=== PATIENT | male | born 1985 | race Caucasian/White ===

== ENCOUNTER 2019-10-11 23:13 | Inpatient (IN) | payer SELFPAY ==
[2019-10-11 23:15] VITALS: BP 121/83; PULSE 75; RESP 18; TEMP 37.1; O2SAT 95; BMI 20.7
--- NOTE | 2019-10-11 23:16 | ED_ITS ---
Entered by Julia Kidd, acting as scribe for Miller Ashraf MD HPI - Psych General: Chief Complaint: Psychiatric Symptoms Stated Complaint: MHE Time Seen by Provider: 10/11/19 23:17 Source: patient and EMS Mode of arrival: EMS Limitations: no limitations History of Present Illness: HPI Narrative: 34-year-old male presents to the ED with complaint of homicidal ideations. Pt states he feels the urge to harm old friends . Pt denies suicidal ideations. He has been on the same dose/medication for the past year and he is needing them re-evaluated. Pt admits to smoking marijumago. complaint: other (HI) Onset (ago): hour(s) Duration: constant History of same: Yes Relieving factors: none Context: recent drug abuse (marijuanna ) Associated psychiatric symptoms: depression and homicidal ideation Associated symptoms: Reports homicidal ideation Treatments prior to arrival: none Review of Systems Const: Denies: fever or chills Eyes: Denies: change in vision ENMT: Denies: throat pain or mouth pain Card: Denies: chest pain Resp: Denies: shortness of breath GI: Denies: abdominal pain, nausea, vomiting or diarrhea Musc: Denies: back pain or joint pain Skin/Breast: Denies: rash Neuro: Denies: headache or behavioral changes Psych: Reports: homicidal ideation Endo: Denies: excessive urination Dat/Lymph: Denies: easy bruising All/Imm: Denies: hives PFSH ED PFSH: Statuses (acute, chronic, etc) shown below reflect problem list status as previously entered and may not be historically accurate Social History Smoking and tobacco status: current every day smoker Physical Exam Const: COMMON NORMALS: no apparent distress, oriented x3 and healthy appearing HENMT: COMMON NORMALS: normocephalic and external nose normal HEAD & SCALP: normocephalic NOSE: external nose normal Eye: COMMON NORMALS: PERRL PUPIL: Yes PERRL Neck/C-Spine: COMMON NORMALS: full ROM and no lymphadenopathy Chest: COMMONS NORMALS: inspection of chest normal Resp: COMMON NORMALS: normal respiratory effort, no use of accessory muscles and clear to auscultation bilaterally AUSCULTATION: clear to auscultation bilaterally Cardio: COMMON NORMALS: regular rate and regular rhythm RATE: regular rate RHYTHM: regular rhythm GI: COMMON NORMALS: normal to inspection, nondistended, normoactive bowel sounds, soft to palpation, non-tender and no masses PALPATION: Yes soft Back/Pelvis: THORACIC SPINE/UPPER BACK: Yes normal to inspection Extremity: COMMON NORMALS: normal to inspection, full ROM and normal capillary refill Neuro: COMMON NORMALS: oriented x3 Psych: COMMON NORMALS: mental status grossly normal and cooperative APPEA ERIC: Yes unkempt SPEECH: Yes soft THOUGHT CONTENT: Yes homicidality Skin: COMMON NORMALS: no rashes or lesions noted GENERAL SKIN EXAM: no rashes or lesions noted MDM - Psych MDM Narrative: Medical decision making narrative: Patient presents here with homicidal ideations and is requesting admission to the psychiatric unit. Patient is voluntary and is been agreeable here. I spoke to Dr. Garcia and will admit to the psychiatric unit. Lab Data: Labs: Lab Results 10/11/19 10/11/19 10/11/19 Range/Units 23:41 23:44 23:44 WBC 10.1 H (4.0-10.0) 10^3/ uL RBC 4.79 (4.1-5.3) 10^6/u L Hgb 14.0 (11.7-16.6) g/dL Hct 42.5 (42.0-52.0) % MCV 88.7 (80-94) fL MCH 29.2 (28.0-34.0) pg MCHC 32.9 (30.0-36.0) g/dL RDW 13.1 (12.1-15.1) % Plt Count 248 (130-400) 10^3/c mm MPV 9.8 (7.4-10.4) fL Neut % (Auto) 62.4 % Lymph % (Auto) 27.3 % [place] Zandt % (Auto) 7.7 % Eos % (Auto) 1.8 % Baso % (Auto) 0.6 % Neut # (Auto) 6.3 (1.8-7.7) 10^3/u L Lymph # (Auto) 2.8 (0.8-4.8) 10^3/u L [place]t # (Auto) 0.8 (0.2-0.9) 10^3/u L Eos # (Auto) 0.2 (0.0-0.8) 10^3/u L Baso # (Auto) 0.1 (0.0-0.1) 10^3/u L Nucleated RBC % (a uto) 0 % Nucleated RBCs # 0.0 /100WBC Sodium 138 (136-145) mmol/L Potassium 4.3 (3.5-5.1) mmol/L Chloride 101 (98-107) mmol/L Carbon Dioxide 26 (22-29) mmol/L Anion Gap 15.3 (5-19) BUN 10 (6-20) mg/dL Creatinine 0.7 (0.7-1.2) mg/dL GFR Calculation 129.9 (90-130) mL/min Glucose 117 H (74-109) mg/dL Calcium 9.9 (8.6-10.0) mg/Dl Total Bilirubin 0.2 (0.15-1.2) mg/dL AST 15 (0-40) U/L ALT 18 (0-41) U/L Alkaline Phosphata se 80 (40-130) IU/L Total Protein 7.6 (6.6-8.7) g/dL Albumin 5.0 (3.5-5.2) g/dL Globulin 2.6 (1.3-4.6) g/dL Salicylates < 0.3 L (3-10) mg/dL Urine Opiates Scre en Negative (Negative) ng/mL Acetaminophen < 5.0 L (10-30) ug/mL Ur Barbiturates Sc reen Negative (Negative) ng/mL Ur Phencyclidine S crn Negative (Negative) ng/mL Ur Amphetamines Sc reen Negative (Negative) ng/mL U Benzodiazepines Scrn Negative (Negative) ng/mL Urine Cocaine Scre en Negative (Negative) ng/mL U Marijuana (THC) Screen Positive H (Negative) ng/mL Ethyl Alcohol < 10 (0-10) mg/dL Discharge Plan Discharge Patient Disposition: Admitted As Inpatient Clinical Impression: Homicidal ideation Condition: Stable Referrals: Shima Bradshaw FNP-C [Primary Care Provider] - Coding Level of Care Code ED Outside [employer] Sales Representatives for Chg Fwd The documentation recorded by the Bernabe chapa Ashley, accurately reflects the service I personally performed and the decisions made by Pascale hampton Korby, MD Oct 11, 2019 23:13
[2019-10-11 23:50] LABS: Basophils # 0.1 10^3/uL (0.0-0.1); Basophils % 0.6 %; Eosinophils # 0.2 10^3/uL (0.0-0.8); Eosinophils % 1.8 %; Hematocrit 42.5 % (42.0-52.0); Lymphocytes # 2.8 10^3/uL (0.8-4.8); Lymphocytes % 27.3 %; Mean Corpuscular HGB Conc 32.9 g/dL (30.0-36.0); Mean Corpuscular Hemoglobin 29.2 pg (28.0-34.0); Mean Corpuscular Volume 88.7 fL (80-94); Mean Platelet Volume 9.8 fL (7.4-10.4); Monocytes # 0.8 10^3/uL (0.2-0.9); Monocytes % 7.7 %; Neutrophils # 6.3 10^3/uL (1.8-7.7); Neutrophils % 62.4 %; Nucleated Red Blood Cells % 0 %; Platelet Count 248 10^3/cmm (130-400); Red Blood Count 4.79 10^6/uL (4.1-5.3); Red Cell Distribution Width 13.1 % (12.1-15.1); White Blood Count 10.1 10^3/uL (4.0-10.0)
[2019-10-12 00:17] LABS: Amphetamines Screen Urine Negative (Negative); Barbiturates Screen Urine Negative (Negative); Benzodiazepines Screen Urine Negative (Negative); Cocaine Screen Urine Negative (Negative); Opiate Screen Urine Negative (Negative); PCP Screen Urine Negative (Negative); THC Screen Urine Positive (Negative)
[2019-10-12 00:18] LABS: Alanine Aminotransferase 18 U/L (0-41); Alkaline Phosphatase 80 IU/L (40-130); Anion Gap 15.3 (5-19); Aspartate Amino Transferase 15 U/L (0-40); Blood Urea Nitrogen 10 mg/dL (6-20); Calcium 9.9 mg/Dl (8.6-10.0); Carbon Dioxide 26 mmol/L (22-29); Chloride 101 mmol/L (98-107); Globulin 2.6 g/dL (1.3-4.6); Glomerular Filtration Rate 129.9 mL/min (90-130); Glucose 117 mg/dL (74-109); Potassium 4.3 mmol/L (3.5-5.1); Sodium 138 mmol/L (136-145); Total Bilirubin 0.2 mg/dL (0.15-1.2); Total Protein 7.6 g/dL (6.6-8.7)
[2019-10-12 00:43] LABS: Acetaminophen < 5.0 ug/mL (10-30); Alcohol Level < 10 mg/dL (0-10); Salicylate < 0.3 mg/dL (3-10)
[2019-10-12 01:21] VITALS: BP 91/55; PULSE 58; RESP 18; O2SAT 99
[2019-10-12 01:25] VITALS: BP 120/79; PULSE 64; RESP 18; TEMP 36.6; O2SAT 100
[2019-10-12 06:00] VITALS: BP 100/56; PULSE 62; RESP 18; TEMP 36.6; O2SAT 97
[2019-10-12] MEDS: nicotine 2 mg Gum BUCCAL ×3 (08:24→18:18)
[2019-10-12] MEDS: hyDROXYzine 25 mg Capsule 50 MG PO (11:50)
--- NOTE | 2019-10-12 11:51 | PC.NURSE ---
PT NOTE: PRN VISTARIL 50 MG GIVEN FOR ANXIETY.
[2019-10-12 14:00] VITALS: BP 113/70; PULSE 82; RESP 17; TEMP 36.8; O2SAT 97
[2019-10-12 17:05] LABS: Glucose Point of Care 155 mg/dL (70-110)
--- NOTE | 2019-10-12 19:31 | PM.NHP ---
Providers/Chief Complaint Admitting Physician: Claus Garcia MD Primary Care Provider: Shima Bradshaw Chief Complaint: MHE HPI NPU History of Present Illness Jessica Louis is a 34 year old male who presents reporting that he has been struggling recently overall. He endorses having had increase in depression and anxiety and feeling like his medications to treat said issues were not effective. He endorses having multiple hospitalizations last one being here almost 2 years ago. He endorses sometimes being nonadherent to treatment with gets him in trouble. He denies significant addiction issues but does report fairly regular marijuana use. Reports that he started having thoughts to kill himself. Endorses low mood, poor sleep, feelings of hopelessness, helplessness and worthlessness and sewing to think about killing himself as well as killing others from past slights those individuals have had against him. Psychiatric history: As above and please see last evaluation for medication trials etc. Substance abuse history: Endorses smoking cigarettes, having alcohol rarely, smoking marijuana with some regularity. He denies current issues with cocaine, methamphetamine, opiates or any other illicit drugs. Per his last [facility] eval: History of Present Illness Date of Service: Nov 24, 2017 Chief Complaint: Depression, suicidal ideation, homicidal ideation HPI: Mr. Louis is a 32-year-old male who is known to our behavioral health services who presented to [facility] ED with complaint of worsening suicidal ideation and homicidal ideation. He's been off of his medication regimen for the past 2 weeks and reports progressively worsening depression symptoms that he now characterizes as severe. He admits to some social isolation, depressed mood, low energy, low motivation, and associated auditory hallucinations. Patient was last seen at [facility] approximately 1 month ago. He denies any alcohol or any substance use. Allergies: Coded Allergies: CORTICOSTEROIDS (GLUCOCORTICOIDS) (Verified Allergy, Mild, 11/23/17) DIVALPROEX SODIUM (Unverified Allergy, Unknown, 11/23/17) Active Meds: Current Hospital Medications: Medications (Trade) Dose Ordered Sig/Shanika Route PRN Reason Start Time Stop Time Status Last Admin Dose Admin Lorazepam (Ativan Tab) 0.5 mg Q4H PRN PO FOR MILD ANXIETY 11/23/17 18:00 Lorazepam (Ativan Tab) 1 mg Q4H PRN PO FOR MODERATE ANXIETY 11/23/17 18:00 Lorazepam (Ativan Tab) 2 mg Q4H PRN PO FOR SEVERE ANXIETY 11/23/17 18:00 Lorazepam (Ativan Inj) 2 mg Q4H PRN IM For Severe Aggression 11/23/17 18:00 Haloperidol Lactate (Haldol Inj) 5 mg Q4H PRN IM Severe Aggression 11/23/17 18:00 Diphenhydramine HCl (Benadryl Inj) 50 mg ONCE PRN IV Severe Extrapyramidal Symptoms 11/23/17 18:00 Benztropine Mesylate (Cogentin Tab) 1 mg BID PRN PO Mild Extrapyramidal symptoms 11/23/17 18:00 Benztropine Mesylate (Cogentin Inj) 1 mg ONCE PRN IM Severe Extrapyramidal Symptom 11/23/17 18:00 Acetaminophen (Tylenol Tab) 650 mg Q4H PRN PO FOR MILD PAIN 11/23/17 18:00 11/23/17 22:34 Trazodone HCl (Trazodone) 50 mg BEDTIME PRN PO FOR SLEEP 11/23/17 18:00 Nicotine (Nicoderm Patch) 21 mg DAILY PRN TD FOR WITHDRAWAL 11/23/17 18:00 Nicotine Polacrilex (Nicotine Gum) 2 mg Q2H PRN PO Withdrawal 11/23/17 18:00 11/24/17 09:14 Haloperidol (Haldol Tab) 5 mg Q4H PRN PO For agitation 11/23/17 18:00 Lorazepam (Ativan Tab) 2 mg Q4H PRN PO FOR AGITATION 11/23/17 18:00 Olanzapine (Zyprexa Zydis) 5 mg BID PO 11/23/17 22:00 11/24/17 09:13 Influenza Virus Vaccine Quadrival (Flucelvax Quad 9811-0915 Syr) 60 mcg ONCE ONCE IM 11/24/17 18:00 11/24/17 18:01 Pneumococcal Polyvalent Vaccine (Pneumovax Vaccine) 0.5 ml ONCE ONCE IM 11/24/17 18:00 11/24/17 18:01 Past Medical History Past Medical History: PAST PSYCHIATRIC HISTORY: -Review of records indicates that he has been receiving care in on the [facility] system at least since 2013 -Consistent diagnoses include bipolar disorder with psychosis, homicidal ideation, willem, PTSD -Most recently his medication regimen has included Abilify, lithium, Ambien, and he states this combination has not been very helpful -He's had previous trials of Depakote which he has allergy, Lamictal, Trileptal, Haldol; this appears that lithium is most consistent medication he's been on over the years PAST FAMILY PSYCHIATRIC HISTORY: -He has 2 siblings with bipolar disorder SOCIAL HISTORY: -Recently had his disability hearing PAST MEDICAL HISTORY: -Type II diabetes mellitus Meds NPU Home Medications Medication Instructions Recorded Confirmed Type divalproex 500 mg PO BID 10/11/19 10/11/19 History fluoxetine [Prozac] 20 mg PO DAILY 10/11/19 10/11/19 History naproxen 500 mg PO BID PRN 10/11/19 10/11/19 History buspirone 7.5 mg PO BID 10/12/19 10/12/19 History Allergies Allergy/AdvReac Type Severity Reaction Status Date / Time Androgenic Anabolic Steroid Allergy ADR-Halluci Verified 10/12/19 03:20 [facility] NPU PFS: Statuses (acute, chronic, etc) shown below reflect problem list status as previously entered and may not be historically accurate Social History Smoking and tobacco status: current every day smoker Mental Status Exam MSE Comments: This is a slender white male with just mainly noncontact. No abnormal movements except for psychomotor retardation. Cooperative with exam in no acute distress. Speech was decreased rate and volume. Mood described as depressed, affect. Thought process organized. Thought content: Patient denies any suicidal ideation currently endorsed ongoing homicidal ideation but denies it as directed in someone in particular, there are no delusions reported noted, he denies any auditory or visual hallucinations. Attention and concentration were intact and memory appeared reliable but none were formally tested. He is alert and oriented ?3. Insight and judgment are limited. Vitals/I&O/Wt Last Vital Signs Temp 98.3 F 10/12/19 14:00 Pulse 82 10/12/19 14:00 Resp 17 10/12/19 14:00 BP 113/70 10/12/19 14:00 Pulse Ox 97 10/12/19 14:00 Weight last 48 hrs Weight 73.482 kg A&P Assessment and plan (1) Bipolar 1 disorder, depressed: This is a 34-year-old white male with a long history of mental health and addiction issues who presents having struggles with his depression currently on medication that is of limited efficacy at this point. 1. Continue current medication. Except: 2. Increase Prozac to 40 mg by mouth every morning and BuSpar 15 mg by mouth twice a day 3. Encourage individual, group and milieu therapy. 4. Continue every 15 minute checks for safety. 5. Get collateral information from outside treatment seen and significant others. Status: Acute Code(s): F31.9 - Bipolar disorder, unspecified Involuntary Hold Information 96 Hour Hold: 96 Hour Involuntary Admission: No Attestations NPU Medical Necessity Statement*: Inpatient hospitalization is medically necessary and the clinically appropriate intervention at this time. He will be in the hospital for over 2 midnights. We will titrate medication to effect and monitor. Likely length of stay 2-4 days. Coding Level of Care Code Acute Numerical Control Tool Programmer for Keyana Zimmerman Diagnoses Bipolar 1 disorder, depressed F31.9
[2019-10-12 19:56] VITALS: BP 117/67; PULSE 65; RESP 17; TEMP 36.7; O2SAT 98
[2019-10-12] MEDS: fluoxetine 20 mg Capsule PO (21:06)
[2019-10-13 06:00] VITALS: BP 123/59; PULSE 59; RESP 16; TEMP 37.2; O2SAT 96
[2019-10-13 06:41] LABS: Glucose Point of Care 134 mg/dL (70-110)
[2019-10-13] MEDS: fluoxetine 20 mg Capsule PO ×2 (09:01→10:15)
--- NOTE | 2019-10-13 09:52 | P.PN_ITS ---
Subjective NPU Subjective: Interval history: Scottie presents today reporting that the increase in the BuSpar and Prozac filling there being helpful. He reports that he is trying to make some decisions about his life and how he is going to manage anxiety overall. 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 He reports feeling like if he has these medication adjustments in place and follows up with outpatient services that everything will work out. He reports that he is sleeping less which is good and we started discussing discharge. Mental Status Exam MSE Comments: This is a slender white male with adequate dress, grooming and improved eye contact. No abnormal movements except for psychomotor retardation which is improving. Cooperative with exam in no acute distress. Speech was decreased rate and volume. Mood described as a little better, affect congruent. Thought process organized. Thought content: Patient denies any suicidal ideation and currently reports that the homicidal ideation is diminishing , there are no delusions reported or noted, he denies any auditory or visual hallucinations. Attention and concentration were intact and memory appeared reliable but none were formally tested. He is alert and oriented ?3. Insight and judgment are limited but improving. Vitals/I&O/Wt Last Vital Signs Temp 99.0 F 10/13/19 06:00 Pulse 59 L 10/13/19 06:00 Resp 16 10/13/19 06:00 BP 123/59 10/13/19 06:00 Pulse Ox 96 10/13/19 06:00 Weight last 48 hrs Weight 73.482 kg A&P Additional A&P Information Additional A&P Information: This is a 34-year-old white male with a long history of mental health and addiction issues who presents having struggles with his depression currently on medication that is of limited efficacy at this point. 1. Continue current medication. Ey 2. Encourage individual, group and milieu therapy. 3. Continue every 15 minute checks for safety. 4. Get collateral information from outside treatment team and significant others. Involuntary Hold Information 96 Hour Hold: 96 Hour Involuntary Admission: No Attestations NPU Medical Necessity Statement*: Inpatient hospitalization is medically necessary and the clinically appropriate intervention at this time. We will titrate medication to effect and monitor. Likely length of stay 2-3 days. Coding Level of Care Code Acute Signal Apprentice for Keyana Zimmerman
[2019-10-13] MEDS: nicotine 2 mg Gum BUCCAL ×4 (11:28→20:23)
[2019-10-13 13:54] VITALS: BP 120/73; PULSE 58; RESP 16; TEMP 36.9; O2SAT 97
[2019-10-13 16:47] LABS: Glucose Point of Care 131 mg/dL (70-110)
[2019-10-13 19:44] VITALS: BP 124/71; PULSE 63; RESP 19; TEMP 36.4; O2SAT 100
[2019-10-14 06:00] VITALS: BP 112/48; PULSE 66; RESP 18; TEMP 36.9; O2SAT 97
[2019-10-14 06:38] LABS: Glucose Point of Care 120 mg/dL (70-110)
[2019-10-14] MEDS: fluoxetine 20 mg Capsule 40 MG PO (08:11)
[2019-10-14] MEDS: nicotine 2 mg Gum BUCCAL ×4 (08:12→20:53)
--- NOTE | 2019-10-14 11:13 | P.PN_ITS ---
Subjective NPU Subjective: Interval history: Scottie presents today reporting that he has a plan moving forward. He reports that he has had a chance to talk to his grandparents who live close to [place]. They report a plan to support him trying to get things together but given their age and the recent weather they would rather not take multiple trips down here to see him. May come down they would like it to be to pick him up. He reports he feels the medication is helpful and he feels optimistic about moving forward with treatment outpatient and getting back on track with work in his personal life. He is eating and sleeping well. Mental Status Exam MSE Comments: This is a slender white male with adequate dress, grooming and improved eye contact. No abnormal movements except for mild psychomotor retardation which is improving. Poor dentition. Cooperative with exam in no acute distress. Speech was normal rate and decreased volume. Mood described as a better, affect congruent. Thought process organized. Thought content: Patient denies any suicidal or homicidal ideation, there are no delusions reported or noted, he denies any auditory or visual hallucinations. Attention and concentration were intact and memory appeared reliable but none were formally tested. He is alert and oriented ?3. Insight and judgment are improving. Vitals/I&O/Wt Last Vital Signs Temp 98.4 F 10/14/19 06:00 Pulse 66 10/14/19 06:00 Resp 18 10/14/19 06:00 BP 112/48 10/14/19 06:00 Pulse Ox 97 10/14/19 06:00 Weight last 48 hrs Weight 70.477 kg A&P Additional A&P Information Additional A&P Information: This is a 34-year-old white male with a long history of mental health and addiction issues who presents having struggles with his depression currently reporting improvement with the increases made to his medication. 1. Continue current medication. 2. Encourage individual, group and milieu therapy. 3. Continue every 15 minute checks for safety. Involuntary Hold Information 96 Hour Hold: 96 Hour Involuntary Admission: No Attestations NPU Medical Necessity Statement*: Inpatient hospitalization is medically necessary and the clinically appropriate intervention at this time. We will titrate medication to effect and monitor. Plan for discharge tomorrow. Likely length of stay 1-2 days. Coding Level of Care Code Acute Supervisor Rein[employer] Placing for Keyana Zimmerman
[2019-10-14 14:00] VITALS: BP 127/70; PULSE 58; RESP 20; TEMP 36.7; O2SAT 99
[2019-10-14 17:06] LABS: Glucose Point of Care 147 mg/dL (70-110)
[2019-10-14 20:08] VITALS: BP 129/54; PULSE 52; RESP 18; TEMP 36.7; O2SAT 99
[2019-10-14 20:13] VITALS: BP 129/54; PULSE 52; RESP 18; TEMP 36.7; O2SAT 99
[2019-10-14 20:53] LABS: Glucose Point of Care 175 mg/dL (70-110)
[2019-10-15] MEDS: nicotine 2 mg Gum BUCCAL ×3 (04:11→12:33)
[2019-10-15 06:00] VITALS: BP 112/68; PULSE 75; RESP 16; TEMP 36.9; O2SAT 97
[2019-10-15 06:24] LABS: Glucose Point of Care 127 mg/dL (70-110)
[2019-10-15] MEDS: fluoxetine 20 mg Capsule 40 MG PO (08:42)
--- NOTE | 2019-10-15 12:53 | PM.NDC ---
Diagnoses at Discharge Discharge Diagnosis (1) Bipolar 1 disorder, depressed: Status: Acute Reason for Visit Reason for Visit: Reason For Visit: MHE Brief History: HPI NPU History of Present Illness Jessica Louis is a 34 year old male who presents reporting that he has been struggling recently overall. He endorses having had increase in depression and anxiety and feeling like his medications to treat said issues were not effective. He endorses having multiple hospitalizations last one being here almost 2 years ago. He endorses sometimes being nonadherent to treatment with gets him in trouble. He denies significant addiction issues but does report fairly regular marijuana use. Reports that he started having thoughts to kill himself. Endorses low mood, poor sleep, feelings of hopelessness, helplessness and worthlessness and sewing to think about killing himself as well as killing others from past slights those individuals have had against him. Psychiatric history: As above and please see last evaluation for medication trials etc. Substance abuse history: Endorses smoking cigarettes, having alcohol rarely, smoking marijuana with some regularity. He denies current issues with cocaine, methamphetamine, opiates or any other illicit drugs. Per his last [facility] eval: History of Present Illness Date of Service: Nov 24, 2017 Chief Complaint: Depression, suicidal ideation, homicidal ideation HPI: Mr. Louis is a 32-year-old male who is known to our behavioral health services who presented to [facility] ED with complaint of worsening suicidal ideation and homicidal ideation. He's been off of his medication regimen for the past 2 weeks and reports progressively worsening depression symptoms that he now characterizes as severe. He admits to some social isolation, depressed mood, low energy, low motivation, and associated auditory hallucinations. Patient was last seen at [facility] approximately 1 month ago. He denies any alcohol or any substance use. Allergies: Coded Allergies: CORTICOSTEROIDS (GLUCOCORTICOIDS) (Verified Allergy, Mild, 11/23/17) DIVALPROEX SODIUM (Unverified Allergy, Unknown, 11/23/17) Active Meds: Current Hospital Medications: Medications (Trade) Dose Ordered Sig/Shanika Route PRN Reason Start Time Stop Time Status Last Admin Dose Admin Lorazepam (Ativan Tab) 0.5 mg Q4H PRN PO FOR MILD ANXIETY 11/23/17 18:00 Lorazepam (Ativan Tab) 1 mg Q4H PRN PO FOR MODERATE ANXIETY 11/23/17 18:00 Lorazepam (Ativan Tab) 2 mg Q4H PRN PO FOR SEVERE ANXIETY 11/23/17 18:00 Lorazepam (Ativan Inj) 2 mg Q4H PRN IM For Severe Aggression 11/23/17 18:00 Haloperidol Lactate (Haldol Inj) 5 mg Q4H PRN IM Severe Aggression 11/23/17 18:00 Diphenhydramine HCl (Benadryl Inj) 50 mg ONCE PRN IV Severe Extrapyramidal Symptoms 11/23/17 18:00 Benztropine Mesylate (Cogentin Tab) 1 mg BID PRN PO Mild Extrapyramidal symptoms 11/23/17 18:00 Benztropine Mesylate (Cogentin Inj) 1 mg ONCE PRN IM Severe Extrapyramidal Symptom 11/23/17 18:00 Acetaminophen (Tylenol Tab) 650 mg Q4H PRN PO FOR MILD PAIN 11/23/17 18:00 11/23/17 22:34 Trazodone HCl (Trazodone) 50 mg BEDTIME PRN PO FOR SLEEP 11/23/17 18:00 Nicotine (Nicoderm Patch) 21 mg DAILY PRN TD FOR WITHDRAWAL 11/23/17 18:00 Nicotine Polacrilex (Nicotine Gum) 2 mg Q2H PRN PO Withdrawal 11/23/17 18:00 11/24/17 09:14 Haloperidol (Haldol Tab) 5 mg Q4H PRN PO For agitation 11/23/17 18:00 Lorazepam (Ativan Tab) 2 mg Q4H PRN PO FOR AGITATION 11/23/17 18:00 Olanzapine (Zyprexa Zydis) 5 mg BID PO 11/23/17 22:00 11/24/17 09:13 Influenza Virus Vaccine Quadrival (Flucelvax Quad [id number] Syr) 60 mcg ONCE ONCE IM 11/24/17 18:00 11/24/17 18:01 Pneumococcal Polyvalent Vaccine (Pneumovax Vaccine) 0.5 ml ONCE ONCE IM 11/24/17 18:00 11/24/17 18:01 Past Medical History Past Medical History: PAST PSYCHIATRIC HISTORY: -Review of records indicates that he has been receiving care in on the [facility] at least since 2013 -Consistent diagnoses include bipolar disorder with psychosis, homicidal ideation, willem, PTSD -Most recently his medication regimen has included Abilify, lithium, Ambien, and he states this combination has not been very helpful -He's had previous trials of Depakote which he has allergy, Lamictal, Trileptal, Haldol; this appears that lithium is most consistent medication he's been on over the years PAST FAMILY PSYCHIATRIC HISTORY: -He has 2 siblings with bipolar disorder SOCIAL HISTORY: -Recently had his disability hearing PAST MEDICAL HISTORY: -Type II diabetes mellitus Hospital Course Hospital Course Scottie presented to the emergency room and ultimately was admitted to the neuro psych unit secondary to increasing depression and suicidal thoughts. On the unit he acclimated to the individual, group and milieu therapies provided. His Prozac was increased to 40 mg p.o. every morning and he was placed on BuSpar 15 mg p.o. twice daily. He responded well to this combination. During the hospitalization he had routine laboratory studies which were within normal limits except for a few outliers. Additionally he had a general medical evaluation which was within normal limits and revealed no new acute processes. Discharge Summary At the time of discharge all lethality was denied, depression and anxiety were significantly improved, a plan to avoid drugs of abuse was endorsed. And a commitment to outpatient follow-up which was arranged prior to discharge was reported. Patient received maximum benefit from an inpatient hospitalization, so was discharged. Involuntary Hold Information 96 Hour Hold: 96 Hour Involuntary Admission: No Mental Status Exam MSE Comments: This is a slender white male with adequate dress, grooming and improved eye contact. No abnormal movements except for improving psychomotor retardation. Poor dentition. Cooperative with exam in no acute distress. Speech was normal rate and volume. Mood described as better, affect congruent. Thought process organized. Thought content: Patient denies any suicidal or homicidal ideation, there are no delusions reported or noted, he denies any auditory or visual hallucinations. Attention and concentration were intact and memory appeared reliable but none were formally tested. He is alert and oriented ?3. Insight and judgment are improving. Discharge Data Data Completed and Pending: Labs from last 24 hours 10/15/19 10/14/19 10/14/19 06:14 20:41 17:03 POC Glucose 127 175 147 Vitals: Last Vital Signs Temp 98.4 F 10/15/19 06:00 Pulse 75 10/15/19 06:00 Resp 16 10/15/19 06:00 BP 112/68 10/15/19 06:00 Pulse Ox 97 10/15/19 06:00 Discharge Plan Discharge Patient Disposition: Home, Self-Care Condition: Stable Prescriptions: New fluoxetine 20 mg Capsule 40 mg PO DAILY 30 Days Qty: 30 RF: 1 buspirone 15 mg Tablet 15 mg PO BID 30 Days Qty: 60 RF: 1 Continued naproxen 500 mg Tablet 500 mg PO BID PRN (Reason: Pain) RF: 0 divalproex 500 mg Tablet,Delayed Release (Dr/Ec) 500 mg PO BID 30 Days Qty: 60 RF: 1 Discontinued fluoxetine [Prozac] 20 mg Capsule 20 mg PO DAILY RF: 0 buspirone 7.5 mg Tablet 7.5 mg PO BID RF: 0 Discharge Orders: Discharge Order (Routine); Ordered 10/15/19 Ordered By: Claus Garcia Referrals: Shima Bradshaw FNP-C [Primary Care Provider] - Activity Restrictions/Additional Instructions: To initiate services at [facility] you may go there during the walk-in hours and request initial intake. Walk-in hours 7:30-2:30 Tuesday through Tuesday at [facility] ([facility]) [address] [facility], [facility] [address] [place] [address] Discharge Date/Time: 10/15/19 13:15 Discharge Attestations NPU Time Spent in Discharge Care*: less than 30 min Specific Discharge Activities: Specific discharge activities: educating patient, discussing with case packer/social workers/dc planners, documenting/other paperwork and evaluating patient/reviewing data Coding Level of Care Code Acute Special Education Classroom Aide for g Fwd Diagnoses Bipolar 1 disorder, depressed F31.9
== END 2019-10-15 13:15 | disposition home or self-care (01) | DRG 885 ==
LOC: ER 10-12 00:44 → NP 10-12 01:18
PROVIDERS: Admitting Provider Psychiatry & Neurology Psychiatry; Emergency Provider Emergency Medicine; Family Provider Nurse Practitioner Family; PCP Nurse Practitioner Family; Visit Provider Psychiatry & Neurology Psychiatry
DX: F31.9 Bipolar disorder, unspecified (principal); R45.851 Suicidal ideations; R45.850 Homicidal ideations; F17.210 Nicotine dependence, cigarettes, uncomplicated
CPT/HCPCS: 12345; 36415; 36416; 80053; 80307; 82962; 85025; 99284

== ENCOUNTER 2021-10-19 05:05 | Emergency (ER) | payer OTHER, SELFPAY ==
[2021-10-19 05:19] VITALS: BP 135/77; PULSE 67; RESP 17; O2SAT 98; BMI 19.9
--- NOTE | 2021-10-19 05:24 | W.ED.FEVER ---
HPI - Fever General: Chief Complaint: COVID symptoms Stated Complaint: Covid Symptoms Time Seen by Provider: 10/19/21 05:07 Source: patient Mode of arrival: ambulatory Limitations: no limitations History of Present Illness: HPI Narrative: 36-year-old male who states he has had cough congestion fever over the last day. He states he is concerned he may have COVID and did not want to go to work with COVID. He is in no distress here he states has been around multiple sick contacts he is not vaccinated denies headache states he is having some loss of smell. Associated symptoms: Deny abdominal pain, chest pain, diarrhea, dysuria, headache(s), nausea or vomiting Review of Systems Const: Reports: fever(s) Eyes: Denies: blurry vision or eye discomfort ENMT: Denies: throat pain or dental pain Card: Denies: chest pain Resp: Reports: non-productive cough GI: Denies: abdominal pain, nausea, vomiting or diarrhea : Denies: dysuria Musc: Denies: neck pain or back pain Skin/Breast: Denies: rash Neuro: Denies: headache(s) Psych: Denies: depression Dat/Lymph: Denies: easy bruising All/Imm: Denies: urticaria PFSH ED PFSH: Social History Smoking and tobacco status: current every day smoker Physical Exam Const: COMMON NORMALS: no acute distress, patient oriented x3 and healthy appearing HENMT: COMMON NORMALS: normocephalic and atraumatic HEAD & SCALP: normocephalic and atraumatic Eye: COMMON NORMALS: Equal, round and reactive pupils present and EOMs intact bilaterally PUPIL: Yes Equal, round and reactive pupils present Neck/C-Spine: COMMON NORMALS: full ROM and supple Chest: COMMONS NORMALS: normal inspection of the chest and normal palpation of entire chest wall Resp: COMMON NORMALS: normal respiratory effort, No retractions, No use of accessory muscles and clear to auscultation bilaterally AUSCULTATION: clear to auscultation bilaterally Cardio: COMMON NORMALS: regular rate, regular rhythm and No murmurs present (Cardio) RATE: regular rate RHYTHM: regular rhythm GI: COMMON NORMALS: Normal to inspection, nondistended, normoactive bowel sounds present, Soft to palpation, non-tender and no masses PALPATION: Yes Soft to palpation Extremity: COMMON NORMALS: normal to inspection and full ROM Neuro: COMMON NORMALS: patient oriented x3, moves all extremities and no focal motor deficits Psych: COMMON NORMALS: mental status grossly normal, Normal thought process present and cooperative THOUGHT PROCESS: Normal thought process present Skin: COMMON NORMALS: no rashes or lesions noted and no wounds GENERAL SKIN EXAM: no rashes or lesions noted Course Vital Signs: Vital signs: Vital Signs Pulse Rate 67 10/19/21 05:19 Respiratory Rate 17 10/19/21 05:19 Blood Pressure 135/77 10/19/21 05:19 Pulse Oximetry 96 10/19/21 05:27 MDM - Fever MDM Narrative: Medical decision making narrative: Patient presents here with COVID symptoms we will do a send off COVID he is well-appearing here in no distress stable for discharge has no signs of pneumonia he is to follow-up with PCP and return if worsening. Discharge Plan Discharge Patient Disposition: Home Clinical Impression: Suspected 2019-nCoV infection Condition: Stable Prescriptions: No Action naproxen 500 mg Tablet 500 mg PO BID PRN (Reason: Pain) RF: 0 fluoxetine 20 mg Capsule 40 mg PO DAILY 30 Days Qty: 30 RF: 1 buspirone 15 mg Tablet 15 mg PO BID 30 Days Qty: 60 RF: 1 divalproex 500 mg Tablet,Delayed Release (Dr/Ec) 500 mg PO BID 30 Days Qty: 60 RF: 1 Discharge Orders: Discharge ED (Routine); Ordered 10/19/21 Ordered By: Miller Ashraf Discharge Diet: Advance as tolerated Discharge Activity: Resume usual activity Patient Instructions: Fever in Adults (ED) Stand Alone Forms: Work/School Release Coding Level of Care Code ED Line Installer Repairer for Keyana Zimmerman
[2021-10-19 05:27] VITALS: O2SAT 96
[2021-10-19 05:44] VITALS: O2SAT 96
[2021-10-21 07:56] LABS: Quest SARS-CoV-2 RNA NOT DETECTED (NOT DETECTED)
== END 2021-10-19 05:45 | disposition home or self-care (01) ==
PROVIDERS: Emergency Provider Emergency Medicine
DX: Z20.822 Contact with and (suspected) exposure to COVID-19 (principal); F17.210 Nicotine dependence, cigarettes, uncomplicated
CPT/HCPCS: 87635; 99282